=== PATIENT | male | born 1965 | race Caucasian/White ===

== ENCOUNTER 2020-08-21 10:47 | Emergency (ER) | payer OTHER ==
[2020-08-21] MEDS ORDERED: Rabies Immune Globulin/PF 300 UNIT/ML 1 ML SDV IM ONE ×2 (11:19→12:00)
[2020-08-21] MEDS ORDERED: Rabies Vaccine (Avian) 2.5 Unit Inj Kit IM ONE (11:19)
[2020-08-21] MEDS ORDERED: Diphtheria,Pertussis(Acell),Tetanus Vaccine 0.5 ML Syringe IM ONE (11:19)
--- NOTE | 2020-08-21 11:27 | EDM.PDOC ---
ED HPI GENERAL MEDICAL PROBLEM - General Chief Complaint: Bite:Animal, Insect Stated Complaint: DOG BITE RIGHT LEG Time Seen by Provider: 08/21/20 11:21 Source of Information: Reports: Patient, RN, RN Notes Reviewed History Limitations: Reports: No Limitations - History of Present Illness INITIAL COMMENTS - FREE TEXT/NARRATIVE: Patient presents to the ED via personal vehicle with complaints of dog bite. Per patient report, he sustained the bite while working today; the incident occurred about 45 minutes ago. The dog is unknown to him. He denies loss of motor or sensory function to the affected limb. He is unsure of his tetanus vaccination status. He denies ever receiving rabies vaccination or immuno- globulin prophylaxis. - Related Data Allergies Allergy/AdvReac Type Severity Reaction Status Date / Time No Known Allergies Allergy Verified 08/21/20 11:15 Home Meds: Home Meds . [No Known Home Meds] 08/21/20 [History] Past Medical History - Past Health History Medical/Surgical History: Denies Medical/Surgical History Social & Family History - Tobacco Use Tobacco Use Status *Q: Never Tobacco User Second Hand Smoke Exposure: No - Caffeine Use Caffeine Use: Reports: None - Recreational Drug Use Recreational Drug Use: No ED ROS GENERAL - Review of Systems Review Of Systems: Comprehensive ROS is negative, except as noted in HPI. ED EXAM, ANIMAL BITE - Physical Exam Exam: See Below Exam Limited By: No Limitations General Appearance: Alert, WD/WN, Mild Distress Extremities: Normal Range of Motion, Normal Capillary Refill, Leg Pain (To right calf; Dog bite) Neurological: Alert, Oriented, CN II-XII Intact, Normal Cognition, Normal Gait, No Motor/Sensory Deficits Psychiatric: Normal Affect, Normal Mood Skin Exam: Other (Dog bite to right calf, open and bleeding) ED ANIMAL BITE PROCEDURES - Laceration/Wound Repair Right Mid-Posterior Midline Leg Lac/Wound Length In cm: 4 Appearance: Subcutaneous Distal NVT: Neuro & Vascular Intact, No Tendon Injury Anesthetic Type: Local Local Anesthesia - Lidocaine (Xylocaine): 1% Plain Local Anesthetic Volume: Other (20) Skin Prep: Chlorhexidine (Hibiciens), Sterile Drape Exploration/Debridement/Repair: Wound Explored, Explored to Base, No Foreign Material Found Closed With: Sutures Suture Size: 4-0 Suture Type: Prolene, Interrupted, Simple Drain Placement: No Sterile Dressing Applied: Nurse Tetanus Status Addressed: Yes Complications: Yes Complication Description: RIG and Rabies vaccination administered. Course - Vital Signs Last Recorded V/S: Last Vital Signs Temp 98.4 F 08/21/20 11:20 Pulse 87 08/21/20 11:20 Resp 16 08/21/20 11:20 BP 132/82 08/21/20 11:20 Pulse Ox 98 08/21/20 11:20 - Orders/Labs/Meds Orders: Active Orders 24 hr Category Date Time Status Vaccines to be Administered [RC] PER UNIT ROUTINE Care 08/21/20 11:26 Active Meds: Medications Discontinued Medications Generic Name Dose Route Start Last Admin Trade Name Freq PRN Reason Stop Dose Admin Diphtheria/Tetanus/Acell Pertussis 0.5 ml 08/21/20 11:19 08/21/20 11:54 Boostrix IM 08/21/20 11:20 0.5 ml .ONCE ONE Administration Lidocaine HCl 30 ml 08/21/20 11:31 08/21/20 11:36 Xylocaine-Mpf 1% INJECT 08/21/20 11:32 30 ml ONETIME ONE Administration Lidocaine HCl Confirm 08/21/20 11:33 08/21/20 11:37 Xylocaine-Mpf 1% Administered 08/21/20 11:34 Not Given Dose 30 ml .ROUTE .STK-MED ONE Rabies Immune Globulin 1,500 unit 08/21/20 12:00 08/21/20 11:47 Hyperrab 300 Unit/Ml Vial IM 08/21/20 12:01 1,500 unit ONETIME ONE Administration Rabies Immune Globulin 160 unit 08/21/20 12:00 08/21/20 11:48 Hyperrab 300 Unit/Ml Vial IM 08/21/20 12:01 160 unit ONETIME ONE Administration Rabies Vaccine 2.5 unit 08/21/20 11:19 08/21/20 12:00 Rabavert IM 08/21/20 11:20 2.5 unit .ONCE ONE Administration - Re-Assessments/Exams Free Text/Narrative Re-Assessment/Exam: 08/21/20 5 sutures placed to bite. RIG and rabies vaccination administered. Tetanus vaccination administered. Patient discharged with antibiotic prophylaxis. Departure - Departure Time of Disposition: 12:20 Disposition: Home, Self-Care 01 Condition: Good Clinical Impression: Need for prophylactic vaccination and inoculation against rabies Dog bite of calf Qualifiers: Encounter type: initial encounter Laterality: right Qualified Code(s): S81.851A - Open bite, right lower leg, initial encounter - Discharge Information *PRESCRIPTION DRUG MONITORING PROGRAM REVIEWED*: Not Applicable *COPY OF PRESCRIPTION DRUG MONITORING REPORT IN PATIENT MAN: Not Applicable Instructions: Animal Bite, Adult, [id number] Forms: ED Department Discharge Additional Instructions: Rx: Augmentin Follow directions of rabies vaccination schedule. You received first dose of of vaccination today. You received rabies immunoglobulin today. Follow up in clinic for removal of stitches in seven days. Use acetaminophen or ibuprofen for pain. Sepsis Event Note (ED) - Evaluation Sepsis Screening Result: No Definite Risk - Focused Exam Vital Signs: Vital Signs Temp Pulse Resp BP Pulse Ox 08/21/20 11:20 98.4 F 87 16 132/82 98 - My Orders Last 24 Hours: My Active Orders 08/21/20 11:26 Vaccines to be Administered [RC] PER UNIT ROUTINE - Assessment/Plan Last 24 Hours: My Active Orders 08/21/20 11:26 Vaccines to be Administered [RC] PER UNIT ROUTINE
[2020-08-21] MEDS ORDERED: Lidocaine 1% 30 ML SDV INJECT ONE (11:31)
[2020-08-21] MEDS ORDERED: Lidocaine 1% 30 ML SDV ONE (11:33)
[2020-08-21] MEDS ORDERED: Rabies Immune Globulin/PF 300 UNIT/ML 5 ML SDV IM ONE (12:00)
[2020-08-24] MEDS ORDERED: Rabies Vaccine (Avian) 2.5 Unit Inj Kit IM ONE (09:00)
[2020-08-28] MEDS ORDERED: Rabies Vaccine (Avian) 2.5 Unit Inj Kit IM ONE (09:00)
[2020-09-04] MEDS ORDERED: Rabies Vaccine (Avian) 2.5 Unit Inj Kit IM ONE (09:00)
== END 2020-08-21 12:35 | disposition home or self-care (01) ==
LOC: DL.ED 10:47
DX: S81.851A Open bite, right lower leg, initial encounter (principal); Z23 Encounter for immunization; W54.0XXA Bitten by dog, initial encounter
CPT/HCPCS: 12002; 90375; 90471; 90472; 90675; 90715; 96372; 99283; J2001